=== PATIENT | female | born 1995 | race Two or more races ===

== ENCOUNTER 2023-07-11 10:30 | Emergency (ER) | payer MEDICAID, OTHER ==
[~2023-07-11] VITALS: Ht 154.9 cm; Wt 116.1 kg
[2023-07-11 12:16] LABS: Urine Bacteria NONE SEEN /hpf (None Seen); Urine Blood Negative /uL (Negative); Urine Clarity Clear (Clear); Urine Color Yellow (Yellow); Urine Protein, UAD Negative (Negative); Urine Specific Gravity 1.018 (1.001-1.035); Urine Urobilinogen Normal (Negative); Urine WBC 1 /hpf (0 - 5); Urine pH 6.5 (5.0-8.0)
[2023-07-11 15:31] VITALS: BP 148/101; PULSE 75; RESP 16; TEMP 98.2; O2SAT 98
[2023-07-11] MEDS ORDERED: AZITTAB PO (16:42)
[2023-07-11] MEDS ORDERED: IBUP-1454 PO (16:42)
== END 2023-07-11 17:04 | disposition home or self-care (01) ==
LOC: ER 10:30
DX: J02.9 Acute pharyngitis, unspecified (principal); Z32.02 Encounter for pregnancy test, result negative
CPT/HCPCS: 81001; 81025

== ENCOUNTER 2024-10-07 11:58 | Emergency (ER) | payer OTHER, MEDICAID ==
[~2024-10-07] VITALS: Ht 152.4 cm; Wt 119.5 kg
[~2024-10-07 11:58] MED LIST: AZITTAB PO; IBUP-1454 PO
[2024-10-07 13:29] VITALS: BP 141/92; PULSE 89; RESP 18; TEMP 99; O2SAT 97
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
[2024-10-07] MEDS ORDERED: IBUP1TAB5 PO (15:25)
[2024-10-07] MEDS ORDERED: METH-1181 PO (15:25)
[2024-10-07] MEDS ORDERED: LIDO5DIS21 TOP (15:25)
== END 2024-10-07 15:56 | disposition home or self-care (01) ==
LOC: ER 11:58
DX: M79.602 Pain in left arm (principal); M25.512 Pain in left shoulder; M54.2 Cervicalgia; Z79.899 Other long term (current) drug therapy; V89.2XXA Person injured in unspecified motor-vehicle accident, traffic, initial encounter; Y93.89 Activity, other specified; Y92.488 Other paved roadways as the place of occurrence of the external cause; Y99.8 Other external cause status
CPT/HCPCS: 72040; 73030